=== PATIENT | female | born 1960 | race Hispanic/Latino ===

== ENCOUNTER 2018-11-25 03:45 | Inpatient (IN) | payer MEDICARE, OTHER ==
--- NOTE | 2018-11-25 04:18 | Emergency Department Report ---
ED Psych HPI - General Chief Complaint: Psych Stated Complaint: SUICIDAL IDEATIONS, OVERDOSE Time Seen by Provider: 11/25/18 04:01 Source: EMS Mode of arrival: Stretcher Limitations: No Limitations - History of Present Illness Initial Comments: 55-year-old female has history of diabetes, GERD, hypertension, and schizoaffective disorder visits to the hospital after suicide attempt. Patient states she took greater than 40 tablets of gabapentin 300 mg. She initially states that she took the medication at "3 hours ago" which would be 1 AM. She then states that she took the medication while he was still light outside. She states she is drowsy and confused. She denies any pain. History of suicide attempt in the past. Patient apparently is having auditory hallucinations. Patient is also on Topamax, Zyprexa, aspirin 81 mg. She presents with these bottles which are filled with medication and denies taking overdose of these medications. - Related Data Home Medications Medication Instructions Recorded Confirmed Last Taken Aspirin [Adult Aspirin] 81 mg PO QDAY 11/25/18 11/25/18 Unknown OLANZapine [Zyprexa Zydis] 15 mg PO QHS 11/25/18 11/25/18 Unknown Topiramate [Topamax] 25 mg PO BID 11/25/18 11/25/18 Unknown Allergies Allergy/AdvReac Type Severity Reaction Status Date / Time adhesive tape Allergy Itching Verified 11/25/18 03:54 codeine Allergy Vomiting Verified 11/25/18 03:54 latex Allergy Hives Verified 11/25/18 03:54 Opioids - Morphine Analogues Allergy Vomiting Verified 11/25/18 03:54 Sulfa (Sulfonamide Allergy Hives Verified 11/25/18 03:54 Antibiotics) ED Review of Systems ROS: Stated complaint: SUICIDAL IDEATIONS, OVERDOSE Other details as noted in HPI Comment: All other systems reviewed and negative ED Past Medical Hx - Past Medical History Previous Medical History?: Yes Hx Hypertension: Yes Hx Diabetes: Yes Hx GERD: Yes Hx Psychiatric Treatment: Yes (schizoaffective disorder) - Surgical History Past Surgical History?: Yes Hx Cholecystectomy: Yes Hx Appendectomy: Yes Additional Surgical History: uterine disection - Social History Smoking Status: Current Every Day Smoker Substance Use Type: None - Medications Home Medications: Home Medications Medication Instructions Recorded Confirmed Last Taken Type Aspirin [Adult Aspirin] 81 mg PO QDAY 11/25/18 11/25/18 Unknown History OLANZapine [Zyprexa Zydis] 15 mg PO QHS 11/25/18 11/25/18 Unknown History Topiramate [Topamax] 25 mg PO BID 11/25/18 11/25/18 Unknown History ED Physical Exam - General Limitations: No Limitations - Other Other exam information: General: Drowsy Head exam: Atraumatic, normocephalic Eyes exam: Normal appearance, pupils equal reactive to light, extraocular movements intact ENT: Moist mucous membrane, normal oropharynx Neck exam: Normal inspection, full range of motion, no meningismus nontender Respiratory exam: Clear to auscultation bilateral, no wheezes, rales, crackles Cardiovascular: Normal rate and rhythm, normal heart sounds Abdomen: Soft, nondistended, and nontender, with normal bowel sounds, no rebound, or guarding Extremity: Full range of motion normal inspection no deformity Back: Normal Inspection, full range of motion, no tenderness Neurologic: Drowsy but awake without tactile stimulation, oriented x3, cranial nerves intact, no motor or sensory deficit Psychiatric: normal affect, normal mood Skin: Warm, dry, intact ED Course Vital Signs 11/25/18 11/25/18 03:47 04:15 Temperature 97.9 F 97.9 F Pulse Rate 79 68 Respiratory 16 13 Rate Blood Pressure 143/76 Blood Pressure 143/76 [Right] O2 Sat by Pulse 99 98 Oximetry - Consultations Consultation #1: 11/25/18 04:18 Case discussed with Suzanne Segura with poison control. States that people need a large dose of gabapentin greater than 49 g to be toxic. Half-life is 5-7 hours with peak kinetics reported between 1 and 3 hours. Major side effect is over sedation and respiratory depression. She was informed of RBBB, QRS duration, and QTc on EKG and will call back regarding further recommendations 11/25/18 04:25 Callback recommended we repeat patient's EKG to ensure that that qtc/qrs are not getting worse. Prefer that intervals gets better or stay the same. Fortunately, we do not have old EKG available for comparison to determine if right bundle branch block is acute or chronic. TCA overdose may cause prolongation but pt sx not consistent with TCA overdose (that usually tachy and hyper then hypotension, then uresponsive) ED Medical Decision Making - Lab Data Result diagrams: 11/25/18 04:15 11/25/18 04:15 Lab Results 11/25/18 11/25/18 11/25/18 Range/Units 04:15 04:15 04:15 WBC (4.5-11.0) K/mm3 RBC (3.65-5.03) M/mm3 Hgb (10.1-14.3) gm/dl Hct (30.3-42.9) % MCV (79-97) fl MCH (28-32) pg MCHC (30-34) % RDW (13.2-15.2) % Plt Count (140-440) K/mm3 Lymph % (Auto) (13.4-35.0) % [place] % (Auto) (0.0-7.3) % Eos % (Auto) (0.0-4.3) % Baso % (Auto) (0.0-1.8) % Lymph # (1.2-5.4) K/mm3 [place] # (0.0-0.8) K/mm3 Eos # (0.0-0.4) K/mm3 Baso # (0.0-0.1) K/mm3 Seg Neutrophils % (40.0-70.0) % Seg Neutrophils # (1.8-7.7) K/mm3 Sodium 138 (137-145) mmol/L Potassium 3.9 (3.6-5.0) mmol/L Chloride 101.5 (98-107) mmol/L Carbon Dioxide 22 (22-30) mmol/L Anion Gap 18 mmol/L BUN 8 (7-17) mg/dL Creatinine 0.7 (0.7-1.2) mg/dL Estimated GFR > 60 ml/min BUN/Creatinine Ratio 11 % Glucose 425 H (65-100) mg/dL Calcium 9.0 (8.4-10.2) mg/dL Salicylates < 0.3 L (2.8-20.0) mg/dL Acetaminophen < 5.0 L (10.0-30.0) ug/mL Plasma/Serum Alcohol (0-0.07) % 11/25/18 11/25/18 Range/Units 04:15 04:15 WBC 10.2 (4.5-11.0) K/mm3 RBC 4.44 (3.65-5.03) M/mm3 Hgb 14.0 (10.1-14.3) gm/dl Hct 41.6 (30.3-42.9) % MCV 94 (79-97) fl MCH 32 (28-32) pg MCHC 34 (30-34) % RDW 14.3 (13.2-15.2) % Plt Count 326 (140-440) K/mm3 Lymph % (Auto) 35.0 (13.4-35.0) % [place] % (Auto) 7.2 (0.0-7.3) % Eos % (Auto) 1.3 (0.0-4.3) % Baso % (Auto) 0.8 (0.0-1.8) % Lymph # 3.6 (1.2-5.4) K/mm3 [place] # 0.7 (0.0-0.8) K/mm3 Eos # 0.1 (0.0-0.4) K/mm3 Baso # 0.1 (0.0-0.1) K/mm3 Seg Neutrophils % 55.7 (40.0-70.0) % Seg Neutrophils # 5.7 (1.8-7.7) K/mm3 Sodium (137-145) mmol/L Potassium (3.6-5.0) mmol/L Chloride (98-107) mmol/L Carbon Dioxide (22-30) mmol/L Anion Gap mmol/L BUN (7-17) mg/dL Creatinine (0.7-1.2) mg/dL Estimated GFR ml/min BUN/Creatinine Ratio % Glucose (65-100) mg/dL Calcium (8.4-10.2) mg/dL Salicylates (2.8-20.0) mg/dL Acetaminophen (10.0-30.0) ug/mL Plasma/Serum Alcohol < 0.01 (0-0.07) % - EKG Data -: EKG Interpreted by Me (RBBB) EKG shows normal: sinus rhythm, axis (qrs 83), QRS complexes (qrsd 140), ST-T waves (no stemi) Rate: normal - EKG Data When compared to previous EKG there are: previous EKG unavailable 11/25/18 05:01 repeat ekg: RBBB, qrsd 142, qtc 466 - Medical Decision Making plan to admit for obs given abnl ekg without previous for verification 2 ekgs I reviewed in ed similar without acute changes. plan to admit to hospitalist for further monitoring 1013 signed ivf and insulin for hyperglycemia due to diabetes urine collection pending at dispo - Differential Diagnosis overdose, suicidal ideation, depression, psychosis Critical Care Time: No Critical care attestation.: If time is entered above; I have spent that time in minutes in the direct care of this critically ill patient, excluding procedure time. ED Disposition Clinical Impression: Gabapentin overdose, Suicide attempt by substance overdose, RBBB, Diabetes Disposition: -09 OP ADMIT IP TO THIS HOSP Is pt being admited?: Yes Condition: Stable Instructions: Diabetes Mellitus Type 2 in Adults (ED) Time of Disposition: 05:51 (DR Machuca/hosp)
[2018-11-25 04:57] LABS: BUN/Creatinine Ratio 11; Blood Urea Nitrogen 8 mg/dL (7-17); Hemolysis Index 12
[2018-11-25 05:00] LABS: Basophils # (Auto) 0.1 K/mm3 (0.0-0.1); Basophils % (Auto) 0.8 % (0.0-1.8); Eosinophils # (Auto) 0.1 K/mm3 (0.0-0.4); Eosinophils % (Auto) 1.3 % (0.0-4.3); Hematocrit 41.6 % (30.3-42.9); Lymphocytes # (Auto) 3.6 K/mm3 (1.2-5.4); Mean Corpuscular HGB Conc 34 % (30-34); Mean Corpuscular Volume 94 fl (79-97); Monocytes # (Auto) 0.7 K/mm3 (0.0-0.8); Monocytes % (Auto) 7.2 % (0.0-7.3); Platelet Count 326 K/mm3 (140-440); Red Blood Count 4.44 M/mm3 (3.65-5.03); Red Cell Distribution Width 14.3 % (13.2-15.2)
[2018-11-25] MEDS ORDERED: HumuLIN R IV ONE (05:26)
[2018-11-25] MEDS ORDERED: NACL 0.9% 1000 ML 1,000 ML IV ONE ×2 (05:26→06:21)
[2018-11-25] MEDS ORDERED: TYLENOL PO PRN (06:17)
[2018-11-25] MEDS ORDERED: SODIUM CHLORIDE FLUSH SYRINGE 10 ML IV PRN (06:17)
[2018-11-25] MEDS ORDERED: ZOFRAN IV PRN (06:17)
[2018-11-25] MEDS ORDERED: D50W (25GM) Syringe IV PRN (06:20)
[2018-11-25] MEDS ORDERED: REGLAN IV PRN (06:23)
--- NOTE | 2018-11-25 06:28 | History and Physical Report ---
History of Present Illness Date of examination: 11/25/18 Chief complaint: Drug overdose History of present illness: Patient is a 55-year-old female with history of diabetes mellitus type 2 and schizoaffective disorder who presented to the ED on account of drug overdose with gabapentin. Patient stated that she took 40 tablets of 300 mg of gabapentin at unknown time in order to kill herself. The reason being that she didn't want to live anymore. She admitted to nausea without vomiting and dizziness. No chest pain, shortness of breath, abdominal pain, headaches, syncope or loss of consciousness. This is her fourth suicidal attempt. Per patient, she recently relocated from [place], [place] and has not seen a psychiatrist for more than a year. Past History Past Medical History: diabetes, GERD, hypertension, other (schizoaffective disorder) Past Surgical History: cholecystectomy, tonsillectomy, Other (uterine resection, laser surgery) Social history: smoking (patient has more than 40 years history of cigarette smoking. She currently smokes 1 pack per day. She admits to marijuana use but denies alcohol or other illicit drug use) Family history: other (significant for psychiatric disorder in multiple family members but no known family history of suicidal attempts) Medications and Allergies Allergies Allergy/AdvReac Type Severity Reaction Status Date / Time adhesive tape Allergy Itching Verified 11/25/18 03:54 codeine Allergy Vomiting Verified 11/25/18 03:54 latex Allergy Hives Verified 11/25/18 03:54 Opioids - Morphine Analogues Allergy Vomiting Verified 11/25/18 03:54 Sulfa (Sulfonamide Allergy Hives Verified 11/25/18 03:54 Antibiotics) Home Medications Medication Instructions Recorded Confirmed Last Taken Type Aspirin [Adult Aspirin] 81 mg PO QDAY 11/25/18 11/25/18 Unknown History OLANZapine [Zyprexa Zydis] 15 mg PO QHS 11/25/18 11/25/18 Unknown History Topiramate [Topamax] 25 mg PO BID 11/25/18 11/25/18 Unknown History Active Meds: Active Medications Acetaminophen (Tylenol) 650 mg PO Q4H PRN PRN Reason: Pain MILD(1-3)/Fever >100.5/LLOYD Dextrose (D50w (25gm) Syringe) 50 ml IV PRN PRN PRN Reason: Hypoglycemia Enoxaparin Sodium (Lovenox) 40 mg SUB-Q QDAY LIAT Sodium Chloride (Nacl 0.9% 1000 Ml) 1,000 mls @ 999 mls/hr IV BOLUS ONE Stop: 11/25/18 06:26 Sodium Chloride (Nacl 0.9% 1000 Ml) 1,000 mls @ 999 mls/hr IV BOLUS ONE Stop: 11/25/18 07:21 Sodium Chloride (Nacl 0.9% 1000 Ml) 1,000 mls @ 125 mls/hr IV DIRECT LIAT Insulin Glargine (Lantus) 25 units SUB-Q BID LIAT Metoclopramide HCl (Reglan) 10 mg IV Q6H PRN PRN Reason: Nausea And Vomiting Sodium Chloride (Sodium Chloride Flush Syringe 10 Ml) 10 ml IV BID LIAT Sodium Chloride (Sodium Chloride Flush Syringe 10 Ml) 10 ml IV PRN PRN PRN Reason: LINE FLUSH Review of Systems All systems: negative (except as documented in the HPI, 14 point system reviewed were negative) Exam - Constitutional Vitals: Temp Pulse Resp BP Pulse Ox 97.9 F 65 16 116/64 97 11/25/18 04:15 11/25/18 05:45 11/25/18 05:45 11/25/18 05:45 11/25/18 05:45 General appearance: Present: no acute distress - EENT Eyes: Present: PERRL, EOM intact ENT: hearing intact, clear oral mucosa - Neck Neck: Present: supple, normal ROM - Respiratory Respiratory effort: normal Respiratory: bilateral: CTA - Cardiovascular Rhythm: regular Heart Sounds: Present: S1 & S2 - Extremities Extremities: pulses symmetrical, No edema - Abdominal General gastrointestinal: Present: soft, non-tender, normal bowel sounds Female genitourinary: Present: deferred - Integumentary Integumentary: Present: clear, warm, dry - Musculoskeletal Musculoskeletal: strength equal bilaterally - Psychiatric Psychiatric: other (suicidal ideation) - Neurologic Neurologic: CNII-XII intact Results - Labs CBC & Chem 7: 11/25/18 04:15 11/25/18 04:15 Labs: Laboratory Last Values WBC 10.2 K/mm3 (4.5-11.0) 11/25/18 04:15 RBC 4.44 M/mm3 (3.65-5.03) 11/25/18 04:15 Hgb 14.0 gm/dl (10.1-14.3) 11/25/18 04:15 Hct 41.6 % (30.3-42.9) 11/25/18 04:15 MCV 94 fl (79-97) 11/25/18 04:15 MCH 32 pg (28-32) 11/25/18 04:15 MCHC 34 % (30-34) 11/25/18 04:15 RDW 14.3 % (13.2-15.2) 11/25/18 04:15 Plt Count 326 K/mm3 (140-440) 11/25/18 04:15 Lymph % (Auto) 35.0 % (13.4-35.0) 11/25/18 04:15 [place] % (Auto) 7.2 % (0.0-7.3) 11/25/18 04:15 Eos % (Auto) 1.3 % (0.0-4.3) 11/25/18 04:15 Baso % (Auto) 0.8 % (0.0-1.8) 11/25/18 04:15 Lymph # 3.6 K/mm3 (1.2-5.4) 11/25/18 04:15 [place] # 0.7 K/mm3 (0.0-0.8) 11/25/18 04:15 Eos # 0.1 K/mm3 (0.0-0.4) 11/25/18 04:15 Baso # 0.1 K/mm3 (0.0-0.1) 11/25/18 04:15 Seg Neutrophils % 55.7 % (40.0-70.0) 11/25/18 04:15 Seg Neutrophils # 5.7 K/mm3 (1.8-7.7) 11/25/18 04:15 Sodium 138 mmol/L (137-145) 11/25/18 04:15 Potassium 3.9 mmol/L (3.6-5.0) 11/25/18 04:15 Chloride 101.5 mmol/L (98-107) 11/25/18 04:15 Carbon Dioxide 22 mmol/L (22-30) 11/25/18 04:15 18 mmol/L 11/25/18 04:15 BUN 8 mg/dL (7-17) 11/25/18 04:15 0.7 mg/dL (0.7-1.2) 11/25/18 04:15 Estimated GFR > 60 ml/min 11/25/18 04:15 11 % 11/25/18 04:15 Glucose 425 mg/dL (65-100) H 11/25/18 04:15 Calcium 9.0 mg/dL (8.4-10.2) 11/25/18 04:15 Salicylates < 0.3 mg/dL (2.8-20.0) L 11/25/18 04:15 Acetaminophen < 5.0 ug/mL (10.0-30.0) L 11/25/18 04:15 Plasma/Serum Alcohol < 0.01 % (0-0.07) 11/25/18 04:15 Assessment and Plan Assessment and plan: Drug over dose with gabapentin -Per ER doc, case discussed with Suzanne Segura with poison control. States that people need a large dose of gabapentin greater than 49 g to be toxic. Half-life is 5-7 hours with peak kinetics reported between 1 and 3 hours. Major side effect is over sedation and respiratory depression. -Avoid sedative agents -Monitor mental and respiratory status Schizoaffective disorder with suicidal attempt -On 1013 -Mental health team consulted. Abnormal EKG (RBBB and prolonged QT) -Unlikely due to the gabapentin overdose -Telemetry monitoring -Avoid QT prolonging agents -Follow up repeat EKG per poison control recommendation DM2 with hyperglycemia -On IV fluid, SSI and Lantus Hypertension -BP stable GERD -On Protonix DVT prophylaxis with Lovenox Disposition: Discharge planning per psych when medically cleared Time spent: 38 minutes
[2018-11-25 07:50] LABS: Bilirubin,Urine NEG (Negative); Blood,Urine NEG (Negative); Color,Urine Yellow (Yellow); Mucus,Urine FEW /HPF; Protein,Urine <15 mg/dL mg/dL (Negative); Urobilinogen,Urine < 2.0 mg/dL (<2.0)
[2018-11-25 07:52] LABS: Amphetamine Screen,Urine PRESUMPTIVE NEGATIVE; Benzodiazepines Screen,Urine PRESUMPTIVE NEGATIVE; Cannabinoid Screen,Urine PRESUMPTIVE NEGATIVE; Cocaine Screen,Urine PRESUMPTIVE NEGATIVE; Methadone Screen,Urine PRESUMPTIVE NEGATIVE; Opiate Screen,Urine PRESUMPTIVE NEGATIVE
[2018-11-25] MEDS: LANTUS SUB-Q SCH ×2 (08:26→18:21)
[2018-11-25] MEDS ORDERED: NACL 0.9% 1000 ML 1,000 ML ONE (08:36)
--- NOTE | 2018-11-25 09:18 | Progress Note ---
Assessment and Plan Assessment and plan: Drug over dose with gabapentin -Per ER doc, case discussed with Suzanne Segura with poison control. States that people need a large dose of gabapentin greater than 49 g to be toxic. Half-life is 5-7 hours with peak kinetics reported between 1 and 3 hours. Major side effect is over sedation and respiratory depression. -Avoid sedative agents -Monitor mental and respiratory status Schizoaffective disorder with suicidal attempt -On 1013 -Mental health team consulted. Abnormal EKG (RBBB and prolonged QT) -Unlikely due to the gabapentin overdose -Telemetry monitoring -Avoid QT prolonging agents -Follow up repeat EKG per poison control recommendation DM2 with hyperglycemia -On IV fluid, SSI and Lantus -Accu-Cheks and ADA diet Hypertension -BP stable GERD -On Protonix DVT prophylaxis with Lovenox Disposition: Discharge planning per psych when medically cleared History Interval history: Patient is a 55-year-old female with history of diabetes mellitus type 2 and schizoaffective disorder who presented to the ED on account of drug overd ose with gabapentin. Patient stated that she took 40 tablets of 300 mg of gabapentin at unknown time in order to kill herself. The reason being that she didn't want to live anymore. Hospitalist Physical - Constitutional Vitals: Temp Pulse Resp BP Pulse Ox 97.9 F 65 16 116/64 97 11/25/18 04:15 11/25/18 05:45 11/25/18 05:45 11/25/18 05:45 11/25/18 05:45 General appearance: Present: no acute distress - EENT Eyes: Present: PERRL, EOM intact ENT: hearing intact, clear oral mucosa, dentition normal - Neck Neck: Present: supple, normal ROM - Respiratory Respiratory effort: normal Respiratory: bilateral: CTA - Cardiovascular Rhythm: regular Heart Sounds: Present: S1 & S2. Absent: gallop, rub - Extremities Extremities: no ischemia, No edema, Full ROM - Abdominal General gastrointestinal: soft, non-tender, non-distended, normal bowel sounds - Integumentary Integumentary: Present: clear, warm, dry - Neurologic Neurologic: CNII-XII intact, moves all extremities Results - Labs CBC & Chem 7: 11/25/18 04:15 11/25/18 04:15 Labs: Laboratory Last Values WBC 10.2 K/mm3 (4.5-11.0) 11/25/18 04:15 RBC 4.44 M/mm3 (3.65-5.03) 11/25/18 04:15 Hgb 14.0 gm/dl (10.1-14.3) 11/25/18 04:15 Hct 41.6 % (30.3-42.9) 11/25/18 04:15 MCV 94 fl (79-97) 11/25/18 04:15 MCH 32 pg (28-32) 11/25/18 04:15 MCHC 34 % (30-34) 11/25/18 04:15 RDW 14.3 % (13.2-15.2) 11/25/18 04:15 Plt Count 326 K/mm3 (140-440) 11/25/18 04:15 Lymph % (Auto) 35.0 % (13.4-35.0) 11/25/18 04:15 [place] % (Auto) 7.2 % (0.0-7.3) 11/25/18 04:15 Eos % (Auto) 1.3 % (0.0-4.3) 11/25/18 04:15 Baso % (Auto) 0.8 % (0.0-1.8) 11/25/18 04:15 Lymph # 3.6 K/mm3 (1.2-5.4) 11/25/18 04:15 [place] # 0.7 K/mm3 (0.0-0.8) 11/25/18 04:15 Eos # 0.1 K/mm3 (0.0-0.4) 11/25/18 04:15 Baso # 0.1 K/mm3 (0.0-0.1) 11/25/18 04:15 Seg Neutrophils % 55.7 % (40.0-70.0) 11/25/18 04:15 Seg Neutrophils # 5.7 K/mm3 (1.8-7.7) 11/25/18 04:15 Sodium 138 mmol/L (137-145) 11/25/18 04:15 Potassium 3.9 mmol/L (3.6-5.0) 11/25/18 04:15 Chloride 101.5 mmol/L (98-107) 11/25/18 04:15 Carbon Dioxide 22 mmol/L (22-30) 11/25/18 04:15 18 mmol/L 11/25/18 04:15 BUN 8 mg/dL (7-17) 11/25/18 04:15 0.7 mg/dL (0.7-1.2) 11/25/18 04:15 Estimated GFR > 60 ml/min 11/25/18 04:15 11 % 11/25/18 04:15 Glucose 425 mg/dL (65-100) H 11/25/18 04:15 POC Glucose 173 (70-105) H 11/25/18 08:02 Calcium 9.0 mg/dL (8.4-10.2) 11/25/18 04:15 Yellow (Yellow) 11/25/18 07:30 Slightly-cloudy (Clear) 11/25/18 07:30 6.0 (5.0-7.0) 11/25/18 07:30 Ur Specific [place] 1.030 (1.003-1.030) 11/25/18 07:30 <15 mg/dl mg/dL (Negative) 11/25/18 07:30 >=500 mg/dL (Negative) 11/25/18 07:30 Neg mg/dL (Negative) 11/25/18 07:30 Neg (Negative) 11/25/18 07:30 Neg (Negative) 11/25/18 07:30 Neg (Negative) 11/25/18 07:30 < 2.0 mg/dL (<2.0) 11/25/18 07:30 Ur Leukocyte Esterase Neg (Negative) 11/25/18 07:30 1.0 /HPF (0.0-6.0) 11/25/18 07:30 1.0 /HPF (0.0-6.0) 11/25/18 07:30 U Epithel Cells (Auto) 6.0 /HPF (0-13.0) 11/25/18 07:30 Few /HPF 11/25/18 07:30 Salicylates < 0.3 mg/dL (2.8-20.0) L 11/25/18 04:15 Presumptive negative 11/25/18 07:30 Presumptive negative 11/25/18 07:30 Acetaminophen < 5.0 ug/mL (10.0-30.0) L 11/25/18 04:15 Ur Barbiturates Screen Presumptive negative 11/25/18 07:30 Ur Phencyclidine Scrn Presumptive negative 11/25/18 07:30 Ur Amphetamines Screen Presumptive negative 11/25/18 07:30 U Benzodiazepines Scrn Presumptive negative 11/25/18 07:30 Presumptive negative 11/25/18 07:30 U Marijuana (THC) Screen Presumptive negative 11/25/18 07:30 Disclamer 11/25/18 07:30 Plasma/Serum Alcohol < 0.01 % (0-0.07) 11/25/18 04:15 Active Medications - Current Medications Current Medications: Generic Name Dose Route Start Last Admin Trade Name Freq PRN Reason Stop Dose Admin Acetaminophen 650 mg 11/25/18 06:17 Tylenol PO Q4H PRN Pain MILD(1-3)/Fever >100.5/LLOYD Dextrose 50 ml 11/25/18 06:20 D50w (25gm) Syringe IV PRN PRN Hypoglycemia Enoxaparin Sodium 40 mg 11/25/18 10:00 Lovenox SUB-Q QDAY LIAT Sodium Chloride 1,000 mls @ 125 mls/hr 11/25/18 07:00 Nacl 0.9% 1000 Ml IV DIRECT LIAT Insulin Glargine 25 units 11/25/18 08:00 11/25/18 08:26 Lantus SUB-Q 25 units BIDDIAB LIAT Administration Metoclopramide HCl 10 mg 11/25/18 06:23 Reglan IV Q6H PRN Nausea And Vomiting Pantoprazole Sodium 40 mg 11/25/18 10:00 Protonix PO QDAY LIAT Sodium Chloride 10 ml 11/25/18 10:00 Sodium Chloride Flush Syringe 10 Ml IV BID LIAT Sodium Chloride 10 ml 11/25/18 06:17 Sodium Chloride Flush Syringe 10 Ml IV PRN PRN LINE FLUSH
--- NOTE | 2018-11-25 10:32 | Consultation ---
History of Present Illness - Reason for Consult Consult date: 11/25/18 Reason for consult: Mental Health EValuation Requesting physician: JAYDEN EISENBERG - Chief Complaint Chief complaint: "I have a lot going on" - History of Present Psychiatric Illness 55 y.o. white female who presented to the ER for a suicide attempt. Today the patient was calm, but paranoid during the assessment. She stated that the voices told her to take several Gabapentin pills (40) to kill herself yesterday. She stated that she was overwhelmed, so she listened to the voices. She was asked about her family, she stated that she do not communicate with them. She sated that her " 's" former coworkers are following her reference an "investment." She rambles about several things that wasn't relevant to the conversation. She was asked about her mental health, she stated "I have not seen a psychiatrist in a year." She stated that she take Zyprexa. She would not confirm or deny having SI's. She denies HI's and VH's. She stated that the voices are "real." She denies recreational drug use and alcohol consumption (etoh). Medications and Allergies Allergies Allergy/AdvReac Type Severity Reaction Status Date / Time adhesive tape Allergy Itching Verified 11/25/18 03:54 codeine Allergy Vomiting Verified 11/25/18 03:54 latex Allergy Hives Verified 11/25/18 03:54 Opioids - Morphine Analogues Allergy Vomiting Verified 11/25/18 03:54 Sulfa (Sulfonamide Allergy Hives Verified 11/25/18 03:54 Antibiotics) Home Medications Medication Instructions Recorded Confirmed Last Taken Type Aspirin [Adult Aspirin] 81 mg PO QDAY 11/25/18 11/25/18 Unknown History OLANZapine [Zyprexa Zydis] 15 mg PO QHS 11/25/18 11/25/18 Unknown History Topiramate [Topamax] 25 mg PO BID 11/25/18 11/25/18 Unknown History Active Meds: Active Medications Acetaminophen (Tylenol) 650 mg PO Q4H PRN PRN Reason: Pain MILD(1-3)/Fever >100.5/LLOYD Dextrose (D50w (25gm) Syringe) 50 ml IV PRN PRN PRN Reason: Hypoglycemia Enoxaparin Sodium (Lovenox) 40 mg SUB-Q QDAY LIAT Sodium Chloride (Nacl 0.9% 1000 Ml) 1,000 mls @ 125 mls/hr IV DIRECT [facility] Insulin Glargine (Lantus) 25 units SUB-Q BIDDIAB [facility] Last Admin: 11/25/18 08:26 Dose: 25 units Documented by: Metoclopramide HCl (Reglan) 10 mg IV Q6H PRN PRN Reason: Nausea And Vomiting Pantoprazole Sodium (Protonix) 40 mg PO QDAY [facility] Sodium Chloride (Sodium Chloride Flush Syringe 10 Ml) 10 ml IV BID LIAT Sodium Chloride (Sodium Chloride Flush Syringe 10 Ml) 10 ml IV PRN PRN PRN Reason: LINE FLUSH Past psychiatric history - Past Medical History Past Medical History: diabetes, GERD, hypertension Past Surgical History: appendectomy, cholecystectomy - past Psychiatric treatment and history psychiatric treatment history: The patient would not confirm or deny previous inpatient psy settings. Denies a fam psy h x. - Social History Social history: Lives alone Mental Status Exam - Vital signs Last Vital Signs Temp 97.9 F 11/25/18 04:15 Pulse 68 11/25/18 07:15 Resp 12 11/25/18 07:15 BP 120/75 11/25/18 07:15 Pulse Ox 98 11/25/18 07:15 - Exam Narrative exam: MSE: Appearance: calm, cooperative Behavior: regular eye contact Speech: regular rate with loud tone Mood:: "okay" Affect: flat Thought Process: loose associations Thought Content: denies HI's and VH's, paranoia, delusional Motor Activity: ambulatory Cognition: A/O x3 Insight: poor Judgment: poor Results Result Diagrams: 11/25/18 04:15 11/26/18 05:45 Abnormal lab results 11/25/18 11/25/18 11/25/18 Range/Units 04:15 04:15 04:15 Glucose 425 H (65-100) mg/dL POC Glucose (70-105) Salicylates < 0.3 L (2.8-20.0) mg/dL Acetaminophen < 5.0 L (10.0-30.0) ug/mL 11/25/18 11/25/18 Range/Units 06:06 08:02 Glucose (65-100) mg/dL POC Glucose 318 H 173 H (70-105) Salicylates (2.8-20.0) mg/dL Acetaminophen (10.0-30.0) ug/mL All other labs normal. Assessment and Plan Assessment and plan: Impression: Unspecified Psychosis. Today the patient was calm, but paranoid during the assessment. UDS is negative. QTc 466. DDx: Bipolar DO with psychosis, Schizoaffective DO, Schizophrenia Recommendation/Plan: Continue 1013 and start Zyprexa 5 mg PO HS for psychosis/mood. Attempted to discuss possible metabolic side effects of Zyprexa with the patient. Disp: Once medically clear, proper dispo will be determined. Staffed with Dr. Julian Corona.
[2018-11-25] MEDS: PROTONIX PO SCH (13:45)
[2018-11-25] MEDS: NACL 0.9% 1000 ML 1,000 ML IV SCH ×2 (13:45→23:15)
[2018-11-25] MEDS: SODIUM CHLORIDE FLUSH SYRINGE 10 ML IV SCH ×2 (13:46→23:11)
[2018-11-25] MEDS: LOVENOX SUB-Q SCH (13:46)
[2018-11-26 07:21] LABS: Alanine Aminotransferase 14 units/L (7-56); Albumin 2.8 g/dL (3.9-5); BUN/Creatinine Ratio 15; Blood Urea Nitrogen 9 mg/dL (7-17); Hemolysis Index 5
[2018-11-26] MEDS: NACL 0.9% 1000 ML 1,000 ML IV SCH ×2 (08:40→17:48)
[2018-11-26] MEDS: LOVENOX SUB-Q SCH (09:43)
[2018-11-26] MEDS: PROTONIX PO SCH (09:43)
[2018-11-26] MEDS: SODIUM CHLORIDE FLUSH SYRINGE 10 ML IV SCH ×2 (09:44→21:46)
--- NOTE | 2018-11-26 10:18 | Progress Note ---
Assessment and Plan Assessment and plan: Drug overdose with gabapentin Schizoaffective disorder with suicidal attempt -On 1013 -Mental health team following. -Zyprexa 5 mg PO HS for psychosis/mood. Abnormal EKG (RBBB and prolonged QT) -Unlikely due to the gabapentin overdose -Telemetry monitoring -Avoid QT prolonging agents -Follow up repeat EKG per poison control recommendation DM2 with hyperglycemia -On IV fluid, SSI and Lantus -Accu-Cheks and ADA diet Hypertension -BP stable GERD -On Protonix DVT prophylaxis with Lovenox Disposition: Discharge planning per psych when medically cleared History Interval history: Patient is a 55-year-old female with history of diabetes mellitus type 2 and schizoaffective disorder who presented to the ED on account of drug overdose with gabapentin. Patient stated that she took 40 tablets of 300 mg of gabapentin at unknown time in order to kill herself. The reason being that she didn't want to live anymore. Patient was evaluated by psychiatry. No new issues overnight. Hospitalist Physical - Constitutional Vitals: Temp Pulse Resp BP Pulse Ox 98.3 F 60 16 127/65 96 11/26/18 05:35 11/26/18 05:35 11/26/18 05:35 11/26/18 05:35 11/26/18 05:35 General appearance: Present: no acute distress - EENT Eyes: Present: PERRL, EOM intact ENT: hearing intact, clear oral mucosa, dentition normal - Neck Neck: Present: supple, normal ROM - Respiratory Respiratory effort: normal Respiratory: bilateral: CTA - Cardiovascular Rhythm: regular Heart Sounds: Present: S1 & S2. Absent: gallop, rub - Extremities Extremities: no ischemia, No edema, Full ROM - Abdominal General gastrointestinal: soft, non-tender, non-distended, normal bowel sounds - Integumentary Integumentary: Present: clear, warm, dry - Neurologic Neurologic: CNII-XII intact, moves all extremities Results - Labs CBC & Chem 7: 11/25/18 04:15 11/26/18 05:45 Labs: Laboratory Last Values WBC 10.2 K/mm3 (4.5-11.0) 11/25/18 04:15 RBC 4.44 M/mm3 (3.65-5.03) 11/25/18 04:15 Hgb 14.0 gm/dl (10.1-14.3) 11/25/18 04:15 Hct 41.6 % (30.3-42.9) 11/25/18 04:15 MCV 94 fl (79-97) 11/25/18 04:15 MCH 32 pg (28-32) 11/25/18 04:15 MCHC 34 % (30-34) 11/25/18 04:15 RDW 14.3 % (13.2-15.2) 11/25/18 04:15 Plt Count 326 K/mm3 (140-440) 11/25/18 04:15 Lymph % (Auto) 35.0 % (13.4-35.0) 11/25/18 04:15 [place] % (Auto) 7.2 % (0.0-7.3) 11/25/18 04:15 Eos % (Auto) 1.3 % (0.0-4.3) 11/25/18 04:15 Baso % (Auto) 0.8 % (0.0-1.8) 11/25/18 04:15 Lymph # 3.6 K/mm3 (1.2-5.4) 11/25/18 04:15 [place] # 0.7 K/mm3 (0.0-0.8) 11/25/18 04:15 Eos # 0.1 K/mm3 (0.0-0.4) 11/25/18 04:15 Baso # 0.1 K/mm3 (0.0-0.1) 11/25/18 04:15 Seg Neutrophils % 55.7 % (40.0-70.0) 11/25/18 04:15 Seg Neutrophils # 5.7 K/mm3 (1.8-7.7) 11/25/18 04:15 Sodium 144 mmol/L (137-145) 11/26/18 05:45 Potassium 3.6 mmol/L (3.6-5.0) 11/26/18 05:45 Chloride 110.5 mmol/L (98-107) H 11/26/18 05:45 Carbon Dioxide 23 mmol/L (22-30) 11/26/18 05:45 14 mmol/L 11/26/18 05:45 BUN 9 mg/dL (7-17) 11/26/18 05:45 0.6 mg/dL (0.7-1.2) L 11/26/18 05:45 Estimated GFR > 60 ml/min 11/26/18 05:45 15 % 11/26/18 05:45 Glucose 197 mg/dL (65-100) H 11/26/18 05:45 POC Glucose 141 (70-105) H 11/26/18 07:59 10.1 % (4-6) H 11/26/18 05:45 Calcium 8.0 mg/dL (8.4-10.2) L 11/26/18 05:45 Magnesium 1.60 mg/dL (1.7-2.3) L 11/26/18 05:45 0.30 mg/dL (0.1-1.2) 11/26/18 05:45 AST 11 units/L (5-40) 11/26/18 05:45 ALT 14 units/L (7-56) 11/26/18 05:45 121 units/L (35-129) 11/26/18 05:45 5.6 g/dL (6.3-8.2) L 11/26/18 05:45 2.8 g/dL (3.9-5) L 11/26/18 05:45 1.0 % 11/26/18 05:45 Yellow (Yellow) 11/25/18 07:30 Slightly-cloudy (Clear) 11/25/18 07:30 6.0 (5.0-7.0) 11/25/18 07:30 Ur Specific [place] 1.030 (1.003-1.030) 11/25/18 07:30 <15 mg/dl mg/dL (Negative) 11/25/18 07:30 >=500 mg/dL (Negative) 11/25/18 07:30 Neg mg/dL (Negative) 11/25/18 07:30 Neg (Negative) 11/25/18 07:30 Neg (Negative) 11/25/18 07:30 Neg (Negative) 11/25/18 07:30 < 2.0 mg/dL (<2.0) 11/25/18 07:30 Ur Leukocyte Esterase Neg (Negative) 11/25/18 07:30 1.0 /HPF (0.0-6.0) 11/25/18 07:30 1.0 /HPF (0.0-6.0) 11/25/18 07:30 U Epithel Cells (Auto) 6.0 /HPF (0-13.0) 11/25/18 07:30 Few /HPF 11/25/18 07:30 Salicylates < 0.3 mg/dL (2.8-20.0) L 11/25/18 04:15 Presumptive negative 11/25/18 07:30 Presumptive negative 11/25/18 07:30 Acetaminophen < 5.0 ug/mL (10.0-30.0) L 11/25/18 04:15 Ur Barbiturates Screen Presumptive negative 11/25/18 07:30 Ur Phencyclidine Scrn Presumptive negative 11/25/18 07:30 Ur Amphetamines Screen Presumptive negative 11/25/18 07:30 U Benzodiazepines Scrn Presumptive negative 11/25/18 07:30 Presumptive negative 11/25/18 07:30 U Marijuana (THC) Screen Presumptive negative 11/25/18 07:30 Disclamer 11/25/18 07:30 Plasma/Serum Alcohol < 0.01 % (0-0.07) 11/25/18 04:15 Active Medications - Current Medications Current Medications: Generic Name Dose Route Start Last Admin Trade Name Freq PRN Reason Stop Dose Admin Acetaminophen 650 mg 11/25/18 06:17 Tylenol PO Q4H PRN Pain MILD(1-3)/Fever >100.5/LLOYD Dextrose 50 ml 11/25/18 06:20 D50w (25gm) Syringe IV PRN PRN Hypoglycemia Enoxaparin Sodium 40 mg 11/25/18 10:00 11/26/18 09:43 Lovenox SUB-Q 40 mg QDAY LIAT Administration Sodium Chloride 1,000 mls @ 125 mls/hr 11/25/18 07:00 11/26/18 08:40 Nacl 0.9% 1000 Ml IV 125 mls/hr DIRECT LIAT Administration Insulin Glargine 25 units 11/25/18 08:00 11/25/18 18:21 Lantus SUB-Q 25 units BIDDIAB LIAT Administration Metoclopramide HCl 10 mg 11/25/18 06:23 Reglan IV Q6H PRN Nausea And Vomiting Olanzapine 5 mg 11/25/18 22:00 11/25/18 23:11 Zyprexa PO 5 mg HS LIAT Administration Pantoprazole Sodium 40 mg 11/25/18 10:00 11/26/18 09:43 Protonix PO 40 mg QDAY LIAT Administration Sodium Chloride 10 ml 11/25/18 10:00 11/26/18 09:44 Sodium Chloride Flush Syringe 10 Ml IV 10 ml BID LIAT Administration Sodium Chloride 10 ml 11/25/18 06:17 Sodium Chloride Flush Syringe 10 Ml IV PRN PRN LINE FLUSH
[2018-11-26] MEDS: LANTUS SUB-Q SCH ×2 (10:31→17:42)
--- NOTE | 2018-11-26 14:39 | Progress Note ---
Subjective - Reason for Consult Consult date: 11/26/18 Reason for consult: Psychiatric Follow-up Evaluation - Chief Complaint Chief complaint: "a little anxious" Patient is a 55 y.o. white female who presented to the ER for a suicide attempt. Today the patient is cooperative but anxious during the assessment. She continues to endorses paranoid delusions toward family. She states " my 4 years ago and I'm the heir to his inheritance." Also, she endorses intermittent auditory hallucinations. Per patient the voices laugh at her, make fun of her, and bully her. Reports appropriate sleep and appetite. She denies SI/HI's. Mental Status Exam - Vital signs Last Vital Signs Temp 98.3 F 11/26/18 11:50 Pulse 67 11/26/18 11:50 Resp 18 11/26/18 11:50 BP 152/84 11/26/18 11:50 Pulse Ox 98 11/26/18 11:50 - Exam Narrative exam: Mental Status Exam Appearance: calm, cooperative Behavior: regular eye contact Speech: regular rate with loud tone Mood:: "a little anxious" Affect: flat Thought Process: loose associations Thought Content: denies SI/HI's and VH's; + auditory hallucinations and paranoid/grandiose delusions. Motor Activity: ambulatory Cognition: A/O x 3 Insight: poor Judgment: poor Assessment and Plan Impression: Unspecified Psychosis. Today the patient is cooperative but anxious during the assessment. Psychosis is evident. UDS is negative. QTc 466. DDx: Bipolar DO with psychosis, Schizoaffective DO, Schizophrenia Recommendation/Plan: 1. Continue 1013. 2. Continue Zyprexa 5 mg PO HS for psychosis/mood. Attempted to discuss possible metabolic side effects of Zyprexa with the patient. Disposition: Once medically clear, proper disposition will be determined. Will staff with Dr. Julian Corona.
[2018-11-27] MEDS: NACL 0.9% 1000 ML 1,000 ML IV SCH ×2 (02:29→14:11)
[2018-11-27] MEDS: PROTONIX PO SCH (09:46)
[2018-11-27] MEDS: SODIUM CHLORIDE FLUSH SYRINGE 10 ML IV SCH ×2 (09:47→21:31)
[2018-11-27] MEDS: LOVENOX SUB-Q SCH (09:47)
[2018-11-27] MEDS: LANTUS SUB-Q SCH ×2 (09:47→18:05)
--- NOTE | 2018-11-27 10:11 | Progress Note ---
Assessment and Plan Assessment and plan: Drug overdose with gabapentin Schizoaffective disorder with suicidal attempt -On 1013 -Mental health team following. -Zyprexa 5 mg PO HS for psychosis/mood. Abnormal EKG (RBBB and prolonged QT) -Unlikely due to the gabapentin overdose -Telemetry monitoring -Avoid QT prolonging agents -Follow up repeat EKG per poison control recommendation DM2 with hyperglycemia -On IV fluid, SSI and Lantus -Accu-Cheks and ADA diet Hypertension -BP stable GERD -On Protonix DVT prophylaxis with Lovenox Disposition: Discharge planning per psych when medically cleared History Interval history: Patient is a 55-year-old female with history of diabetes mellitus type 2 and schizoaffective disorder who presented to the ED on account of drug overdose with gabapentin. Patient stated that she took 40 tablets of 300 mg of gabapentin at unknown time in order to kill herself. The reason being that she didn't want to live anymore. Patient was evaluated by psychiatry. No new issues overnight. Hospitalist Physical - Constitutional Vitals: Temp Pulse Resp BP Pulse Ox 98.5 F 64 16 148/75 98 11/27/18 10:06 11/27/18 10:06 11/27/18 10:06 11/27/18 10:11/27/18 10:06 General appearance: Present: no acute distress - EENT Eyes: Present: PERRL, EOM intact ENT: hearing intact, clear oral mucosa, dentition normal - Neck Neck: Present: supple, normal ROM - Respiratory Respiratory effort: normal Respiratory: bilateral: CTA - Cardiovascular Rhythm: regular Heart Sounds: Present: S1 & S2. Absent: gallop, rub - Extremities Extremities: no ischemia, No edema, Full ROM - Abdominal General gastrointestinal: soft, non-tender, non-distended, normal bowel sounds - Integumentary Integumentary: Present: clear, warm, dry - Neurologic Neurologic: CNII-XII intact, moves all extremities Results - Labs CBC & Chem 7: 11/25/18 04:15 11/26/18 05:45 Labs: Laboratory Last Values WBC 10.2 K/mm3 (4.5-11.0) 11/25/18 04:15 RBC 4.44 M/mm3 (3.65-5.03) 11/25/18 04:15 Hgb 14.0 gm/dl (10.1-14.3) 11/25/18 04:15 Hct 41.6 % (30.3-42.9) 11/25/18 04:15 MCV 94 fl (79-97) 11/25/18 04:15 MCH 32 pg (28-32) 11/25/18 04:15 MCHC 34 % (30-34) 11/25/18 04:15 RDW 14.3 % (13.2-15.2) 11/25/18 04:15 Plt Count 326 K/mm3 (140-440) 11/25/18 04:15 Lymph % (Auto) 35.0 % (13.4-35.0) 11/25/18 04:15 [place] % (Auto) 7.2 % (0.0-7.3) 11/25/18 04:15 Eos % (Auto) 1.3 % (0.0-4.3) 11/25/18 04:15 Baso % (Auto) 0.8 % (0.0-1.8) 11/25/18 04:15 Lymph # 3.6 K/mm3 (1.2-5.4) 11/25/18 04:15 [place] # 0.7 K/mm3 (0.0-0.8) 11/25/18 04:15 Eos # 0.1 K/mm3 (0.0-0.4) 11/25/18 04:15 Baso # 0.1 K/mm3 (0.0-0.1) 11/25/18 04:15 Seg Neutrophils % 55.7 % (40.0-70.0) 11/25/18 04:15 Seg Neutrophils # 5.7 K/mm3 (1.8-7.7) 11/25/18 04:15 Sodium 144 mmol/L (137-145) 11/26/18 05:45 Potassium 3.6 mmol/L (3.6-5.0) 11/26/18 05:45 Chloride 110.5 mmol/L (98-107) H 11/26/18 05:45 Carbon Dioxide 23 mmol/L (22-30) 11/26/18 05:45 14 mmol/L 11/26/18 05:45 BUN 9 mg/dL (7-17) 11/26/18 05:45 0.6 mg/dL (0.7-1.2) L 11/26/18 05:45 Estimated GFR > 60 ml/min 11/26/18 05:45 15 % 11/26/18 05:45 Glucose 197 mg/dL (65-100) H 11/26/18 05:45 POC Glucose 95 (70-105) 11/27/18 07:39 10.1 % (4-6) H 11/26/18 05:45 Calcium 8.0 mg/dL (8.4-10.2) L 11/26/18 05:45 Magnesium 1.60 mg/dL (1.7-2.3) L 11/26/18 05:45 0.30 mg/dL (0.1-1.2) 11/26/18 05:45 AST 11 units/L (5-40) 11/26/18 05:45 ALT 14 units/L (7-56) 11/26/18 05:45 121 units/L (35-129) 11/26/18 05:45 5.6 g/dL (6.3-8.2) L 11/26/18 05:45 2.8 g/dL (3.9-5) L 11/26/18 05:45 1.0 % 11/26/18 05:45 Yellow (Yellow) 11/25/18 07:30 Slightly-cloudy (Clear) 11/25/18 07:30 6.0 (5.0-7.0) 11/25/18 07:[address] [place] 1.030 (1.003-1.030) 11/25/18 07:30 <15 mg/dl mg/dL (Negative) 11/25/18 07:30 >=500 mg/dL (Negative) 11/25/18 07:30 Neg mg/dL (Negative) 11/25/18 07:30 Neg (Negative) 11/25/18 07:30 Neg (Negative) 11/25/18 07:30 Neg (Negative) 11/25/18 07:30 < 2.0 mg/dL (<2.0) 11/25/18 07:30 Ur Leukocyte Esterase Neg (Negative) 11/25/18 07:30 1.0 /HPF (0.0-6.0) 11/25/18 07:30 1.0 /HPF (0.0-6.0) 11/25/18 07:30 U Epithel Cells (Auto) 6.0 /HPF (0-13.0) 11/25/18 07:30 Few /HPF 11/25/18 07:30 Salicylates < 0.3 mg/dL (2.8-20.0) L 11/25/18 04:15 Presumptive negative 11/25/18 07:30 Presumptive negative 11/25/18 07:30 Acetaminophen < 5.0 ug/mL (10.0-30.0) L 11/25/18 04:15 Ur Barbiturates Screen Presumptive negative 11/25/18 07:30 Ur Phencyclidine Scrn Presumptive negative 11/25/18 07:30 Ur Amphetamines Screen Presumptive negative 11/25/18 07:30 U Benzodiazepines Scrn Presumptive negative 11/25/18 07:30 Presumptive negative 11/25/18 07:30 U Marijuana (THC) Screen Presumptive negative 11/25/18 07:30 Disclamer 11/25/18 07:30 Plasma/Serum Alcohol < 0.01 % (0-0.07) 11/25/18 04:15 Active Medications - Current Medications Current Medications: Generic Name Dose Route Start Last Admin Trade Name Freq PRN Reason Stop Dose Admin Acetaminophen 650 mg 11/25/18 06:17 Tylenol PO Q4H PRN Pain MILD(1-3)/Fever >100.5/LLOYD Dextrose 50 ml 11/25/18 06:20 D50w (25gm) Syringe IV PRN PRN Hypoglycemia Enoxaparin Sodium 40 mg 11/25/18 10:00 11/27/18 09:47 Lovenox SUB-Q 40 mg QDAY LIAT Administration Sodium Chloride 1,000 mls @ 125 mls/hr 11/25/18 07:00 11/27/18 02:29 Nacl 0.9% 1000 Ml IV 125 mls/hr DIRECT LIAT Administration Insulin Glargine 25 units 11/25/18 08:00 11/27/18 09:47 Lantus SUB-Q 25 units BIDDIAB LIAT Administration Metoclopramide HCl 10 mg 11/25/18 06:23 Reglan IV Q6H PRN Nausea And Vomiting Olanzapine 5 mg 11/25/18 22:00 11/26/18 21:46 Zyprexa PO 5 mg HS LIAT Administration Pantoprazole Sodium 40 mg 11/25/18 10:00 11/27/18 09:46 Protonix PO 40 mg QDAY LIAT Administration Sodium Chloride 10 ml 11/25/18 10:00 11/27/18 09:47 Sodium Chloride Flush Syringe 10 Ml IV 10 ml BID LIAT Administration Sodium Chloride 10 ml 11/25/18 06:17 Sodium Chloride Flush Syringe 10 Ml IV PRN PRN LINE FLUSH Nutrition/Malnutrition Assess - Dietary Evaluation Nutrition/Malnutrition Findings: Nutrition Notes Start: 11/26/18 15:20 Freq: Status: Active Protocol: Document 11/26/18 15:20 RM (Rec: 11/26/18 15:23 RM [email or web address]) Nutrition Notes Need for Assessment generated from: MST Initial or Follow up Brief Note Current Diagnosis Diabetes,Hypertension Other Pertinent Diagnosis Schizoaffective disorder, Drug overdose Current Diet Consistent CHO Labs/Tests Reviewed Pertinent Medications Reviewed Height 5 ft 7 in Weight 84.2 kg Usual Body Weight 73.64 kg [place] Body Weight (kg) 61.36 BMI 29.0 Subjective/Other Information Screened for malnutrition. 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 Stated that her appetite is fair now and that she eats all of her meals. Stated UBW was 162 lbs 2 weeks ago. No temporal or orbital wasting . Burn Absent Trauma Absent Nutrition Intervention Revisit per MD consult or patient Sign Off request:
[2018-11-27] MEDS: BENADRYL PO PRN (20:22)
[2018-11-28] MEDS: NACL 0.9% 1000 ML 1,000 ML IV SCH (04:13)
--- NOTE | 2018-11-28 08:48 | Progress Note ---
Assessment and Plan Assessment and plan: Drug overdose with gabapentin Schizoaffective disorder with suicidal attempt -On 1013 -Mental health team following. -Zyprexa 5 mg PO HS for psychosis/mood. Abnormal EKG (RBBB and prolonged QT) -Unlikely due to the gabapentin overdose -Telemetry monitoring -Avoid QT prolonging agents -Follow up repeat EKG per poison control recommendation DM2 with hyperglycemia -On IV fluid, SSI and Lantus -Accu-Cheks and ADA diet Hypertension -BP stable GERD -On Protonix DVT prophylaxis with Lovenox Disposition: Discharge planning per psych History Interval history: Patient is a 55-year-old female with history of diabetes mellitus type 2 and schizoaffective disorder who presented to the ED on account of drug overdose with gabapentin. Patient stated that she took 40 tablets of 300 mg of gabapentin at unknown time in order to kill herself. The reason being that she didn't want to live anymore. Patient was evaluated by psychiatry. No new issues overnight. Hospitalist Physical - Constitutional Vitals: Temp Pulse Resp BP Pulse Ox 97.8 F 60 18 132/57 96 11/28/18 06:00 11/28/18 06:39 11/27/18 18:32 11/28/18 06:39 11/28/18 06:39 General appearance: Present: no acute distress - EENT Eyes: Present: PERRL, EOM intact ENT: hearing intact, clear oral mucosa, dentition normal - Neck Neck: Present: supple, normal ROM - Respiratory Respiratory effort: normal Respiratory: bilateral: CTA - Cardiovascular Rhythm: regular Heart Sounds: Present: S1 & S2. Absent: gallop, rub - Extremities Extremities: no ischemia, No edema, Full ROM - Abdominal General gastrointestinal: soft, non-tender, non-distended, normal bowel sounds - Integumentary Integumentary: Present: clear, warm, dry - Neurologic Neurologic: CNII-XII intact, moves all extremities Results - Labs CBC & Chem 7: 11/25/18 04:15 11/26/18 05:45 Labs: Laboratory Last Values WBC 10.2 K/mm3 (4.5-11.0) 11/25/18 04:15 RBC 4.44 M/mm3 (3.65-5.03) 11/25/18 04:15 Hgb 14.0 gm/dl (10.1-14.3) 11/25/18 04:15 Hct 41.6 % (30.3-42.9) 11/25/18 04:15 MCV 94 fl (79-97) 11/25/18 04:15 MCH 32 pg (28-32) 11/25/18 04:15 MCHC 34 % (30-34) 11/25/18 04:15 RDW 14.3 % (13.2-15.2) 11/25/18 04:15 Plt Count 326 K/mm3 (140-440) 11/25/18 04:15 Lymph % (Auto) 35.0 % (13.4-35.0) 11/25/18 04:15 [place] % (Auto) 7.2 % (0.0-7.3) 11/25/18 04:15 Eos % (Auto) 1.3 % (0.0-4.3) 11/25/18 04:15 Baso % (Auto) 0.8 % (0.0-1.8) 11/25/18 04:15 Lymph # 3.6 K/mm3 (1.2-5.4) 11/25/18 04:15 [place] # 0.7 K/mm3 (0.0-0.8) 11/25/18 04:15 Eos # 0.1 K/mm3 (0.0-0.4) 11/25/18 04:15 Baso # 0.1 K/mm3 (0.0-0.1) 11/25/18 04:15 Seg Neutrophils % 55.7 % (40.0-70.0) 11/25/18 04:15 Seg Neutrophils # 5.7 K/mm3 (1.8-7.7) 11/25/18 04:15 Sodium 144 mmol/L (137-145) 11/26/18 05:45 Potassium 3.6 mmol/L (3.6-5.0) 11/26/18 05:45 Chloride 110.5 mmol/L (98-107) H 11/26/18 05:45 Carbon Dioxide 23 mmol/L (22-30) 11/26/18 05:45 14 mmol/L 11/26/18 05:45 BUN 9 mg/dL (7-17) 11/26/18 05:45 0.6 mg/dL (0.7-1.2) L 11/26/18 05:45 Estimated GFR > 60 ml/min 11/26/18 05:45 15 % 11/26/18 05:45 Glucose 197 mg/dL (65-100) H 11/26/18 05:45 POC Glucose 182 (70-105) H 11/27/18 21:38 10.1 % (4-6) H 11/26/18 05:45 Calcium 8.0 mg/dL (8.4-10.2) L 11/26/18 05:45 Magnesium 1.60 mg/dL (1.7-2.3) L 11/26/18 05:45 0.30 mg/dL (0.1-1.2) 11/26/18 05:45 AST 11 units/L (5-40) 11/26/18 05:45 ALT 14 units/L (7-56) 11/26/18 05:45 121 units/L (35-129) 11/26/18 05:45 5.6 g/dL (6.3-8.2) L 11/26/18 05:45 2.8 g/dL (3.9-5) L 11/26/18 05:45 1.0 % 11/26/18 05:45 Yellow (Yellow) 11/25/18 07:30 Slightly-cloudy (Clear) 11/25/18 07:30 6.0 (5.0-7.0) 11/25/18 07:30 Ur Specific [place] 1.030 (1.003-1.030) 11/25/18 07:30 <15 mg/dl mg/dL (Negative) 11/25/18 07:30 >=500 mg/dL (Negative) 11/25/18 07:30 Neg mg/dL (Negative) 11/25/18 07:30 Neg (Negative) 11/25/18 07:30 Neg (Negative) 11/25/18 07:30 Neg (Negative) 11/25/18 07:30 < 2.0 mg/dL (<2.0) 11/25/18 07:30 Ur Leukocyte Esterase Neg (Negative) 11/25/18 07:30 1.0 /HPF (0.0-6.0) 11/25/18 07:30 1.0 /HPF (0.0-6.0) 11/25/18 07:30 U Epithel Cells (Auto) 6.0 /HPF (0-13.0) 11/25/18 07:30 Few /HPF 11/25/18 07:30 Salicylates < 0.3 mg/dL (2.8-20.0) L 11/25/18 04:15 Presumptive negative 11/25/18 07:30 Presumptive negative 11/25/18 07:30 Acetaminophen < 5.0 ug/mL (10.0-30.0) L 11/25/18 04:15 Ur Barbiturates Screen Presumptive negative 11/25/18 07:30 Ur Phencyclidine Scrn Presumptive negative 11/25/18 07:30 Ur Amphetamines Screen Presumptive negative 11/25/18 07:30 U Benzodiazepines Scrn Presumptive negative 11/25/18 07:30 Presumptive negative 11/25/18 07:30 U Marijuana (THC) Screen Presumptive negative 11/25/18 07:30 Disclamer 11/25/18 07:30 Plasma/Serum Alcohol < 0.01 % (0-0.07) 11/25/18 04:15 Active Medications - Current Medications Current Medications: Generic Name Dose Route Start Last Admin Trade Name Freq PRN Reason Stop Dose Admin Acetaminophen 650 mg 11/25/18 06:17 Tylenol PO Q4H PRN Pain MILD(1-3)/Fever >100.5/LLOYD Dextrose 50 ml 11/25/18 06:20 D50w (25gm) Syringe IV PRN PRN Hypoglycemia Diphenhydramine HCl 25 mg 11/27/18 19:50 11/27/18 20:22 Benadryl PO 25 mg Q8H PRN Administration Itching Enoxaparin Sodium 40 mg 11/25/18 10:00 11/27/18 09:47 Lovenox SUB-Q 40 mg QDAY LIAT Administration Sodium Chloride 1,000 mls @ 125 mls/hr 11/25/18 07:00 11/28/18 04:13 Nacl 0.9% 1000 Ml IV 125 mls/hr DIRECT LIAT Administration Insulin Glargine 25 units 11/25/18 08:00 11/27/18 18:05 Lantus SUB-Q 25 units BIDDIAB LIAT Administration Metoclopramide HCl 10 mg 11/25/18 06:23 Reglan IV Q6H PRN Nausea And Vomiting Olanzapine 5 mg 11/25/18 22:00 11/27/18 21:31 Zyprexa PO 5 mg HS LIAT Administration Pantoprazole Sodium 40 mg 11/25/18 10:00 11/27/18 09:46 Protonix PO 40 mg QDAY LIAT Administration Sodium Chloride 10 ml 11/25/18 10:00 11/27/18 21:31 Sodium Chloride Flush Syringe 10 Ml IV 10 ml BID LIAT Administration Sodium Chloride 10 ml 11/25/18 06:17 Sodium Chloride Flush Syringe 10 Ml IV PRN PRN LINE FLUSH Nutrition/Malnutrition Assess - Dietary Evaluation Nutrition/Malnutrition Findings: Nutrition Notes Start: 11/26/18 15:20 Freq: Status: Active Protocol: Document 11/26/18 15:20 RM (Rec: 11/26/18 15:23 RM [id number]) Nutrition Notes Need for Assessment generated from: MST Initial or Follow up Brief Note Current Diagnosis Diabetes,Hypertension Other Pertinent Diagnosis Schizoaffective disorder, Drug overdose Current Diet Consistent CHO Labs/Tests Reviewed Pertinent Medications Reviewed Height 5 ft 7 in Weight 84.2 kg Usual Body Weight 73.64 kg [place] Body Weight (kg) 61.36 BMI 29.0 Subjective/Other Information Screened for malnutrition. 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 Stated that her appetite is fair now and that she eats all of her meals. Stated UBW was 162 lbs 2 weeks ago. No temporal or orbital wasting . Burn Absent Trauma Absent Nutrition Intervention Revisit per MD consult or patient Sign Off request:
--- NOTE | 2018-11-28 09:40 | Progress Note ---
Subjective - Reason for Consult Consult date: 11/28/18 Reason for consult: Psychiatry Follow-up - Chief Complaint Chief complaint: "They are still following me" 55 y.o. white female who presented to the ER for a suicide attempt. Today the patient was calm during the assessment. She continue to think that her 's coworkers are following her because she inherited some money. She stated that she have not been compliant with her psy medication for several months. She denies SI/HI's and VH's. She acknowledged "some type of AH's. She denies any side effects of her medication. Mental Status Exam - Vital signs Last Vital Signs Temp 97.8 F 11/28/18 06:00 Pulse 60 11/28/18 06:39 Resp 18 11/27/18 18:32 BP 132/57 11/28/18 06:39 Pulse Ox 96 11/28/18 06:39 - Exam Narrative exam: MSE: Appearance: calm Behavior: regular eye contact Speech: regular rate with loud tone Mood:: "okay" Affect: flat Thought Process: circumstantial Thought Content: denies SI/HI's and VH's, paranoia, delusional Motor Activity: ambulatory Cognition: A/O x3 Insight: variable Judgment: variable Assessment and Plan Impression: Unspecified Psychosis. Today the patient was calm during the assessment. UDS is negative. QTc 466. DDx: Bipolar DO with psychosis, Schizoaffective DO, Schizophrenia Recommendation/Plan: Continue 1013 and start Zyprexa 5 mg PO HS for psychosis/mood. Discussed possible metabolic side effects of Zyprexa with the patient, she verbalized understanding. Disp: The patient was referred to inpatient psy services. Will staff with Dr. Julian Corona.
[2018-11-28] MEDS: LOVENOX SUB-Q SCH (09:57)
[2018-11-28] MEDS: LANTUS SUB-Q SCH ×2 (09:57→18:25)
[2018-11-28] MEDS: PROTONIX PO SCH (09:57)
[2018-11-28] MEDS: BENADRYL PO PRN ×2 (10:02→16:21)
[2018-11-28] MEDS: SODIUM CHLORIDE FLUSH SYRINGE 10 ML IV SCH ×2 (10:25→21:15)
[2018-11-28] MEDS: HumaLOG SUB-Q SCH ×2 (18:24→21:18)
[2018-11-29] MEDS: BENADRYL PO PRN ×2 (01:58→09:24)
[2018-11-29] MEDS: HumaLOG SUB-Q SCH ×2 (09:24→12:27)
[2018-11-29] MEDS: LANTUS SUB-Q SCH (09:24)
[2018-11-29] MEDS: LOVENOX SUB-Q SCH (09:24)
[2018-11-29] MEDS: PROTONIX PO SCH (09:24)
--- NOTE | 2018-11-29 11:40 | Consultation ---
History of Present Illness Consult date: 11/29/18 Consult reason: other (abnormal ECG) History of present illness: This is a 58 year old woman who is admitted 11/25 with suicide attempt. A cardiac consultation was requested for abnormal ECG. The ECG on presentation is a sinus rhythm, RBBB with prolonged QTc. There is no complaint of chest pain, shortness of breath or palpitations. A repeat ECG done today a sinus rhythm, RBBB but normalization of QTc. Past History Past Medical History: diabetes, GERD, hypertension Past Surgical History: appendectomy, cholecystectomy Social history: Lives alone Family history: other (significant for psychiatric disorder in multiple family members but no known family history of suicidal attempts) Medications and Allergies Allergies Allergy/AdvReac Type Severity Reaction Status Date / Time adhesive tape Allergy Itching Verified 11/25/18 03:54 codeine Allergy Vomiting Verified 11/25/18 03:54 latex Allergy Hives Verified 11/25/18 03:54 Opioids - Morphine Analogues Allergy Vomiting Verified 11/25/18 03:54 Sulfa (Sulfonamide Allergy Hives Verified 11/25/18 03:54 Antibiotics) Home Medications Medication Instructions Recorded Confirmed Last Taken Type Aspirin [Adult Aspirin] 81 mg PO QDAY 11/25/18 11/25/18 Unknown History OLANZapine [Zyprexa Zydis] 15 mg PO QHS 11/25/18 11/25/18 Unknown History Topiramate [Topamax] 25 mg PO BID 11/25/18 11/25/18 Unknown History Active Meds: Active Medications Acetaminophen (Tylenol) 650 mg PO Q4H PRN PRN Reason: Pain MILD(1-3)/Fever >100.5/LLOYD Dextrose (D50w (25gm) Syringe) 50 ml IV PRN PRN PRN Reason: Hypoglycemia Diphenhydramine HCl (Benadryl) 25 mg PO Q6H PRN PRN Reason: Itching Last Admin: 11/29/18 09:24 Dose: 25 mg Documented by: Enoxaparin Sodium (Lovenox) 40 mg SUB-Q QDAY LIAT Last Admin: 11/29/18 09:24 Dose: 40 mg Documented by: Magnesium Sulfate (Magnesium Sulfate 2gm/50ml) 2 gm in 50 mls @ 25 mls/hr IV ONCE ONE Stop: 11/29/18 13:59 Insulin Glargine (Lantus) 30 units SUB-Q BIDDIAB [facility] Last Admin: 11/29/18 09:24 Dose: 30 units Documented by: Insulin Human Lispro (Humalog) 0 unit SUB-Q ACHS [facility]; Protocol Last Admin: 11/29/18 09:24 Dose: Not Given Documented by: Metoclopramide HCl (Reglan) 10 mg IV Q6H PRN PRN Reason: Nausea And Vomiting Olanzapine (Zyprexa) 5 mg PO HS [facility] Last Admin: 11/28/18 21:14 Dose: 5 mg Documented by: Pantoprazole Sodium (Protonix) 40 mg PO QDAY [facility] Last Admin: 11/29/18 09:24 Dose: 40 mg Documented by: Sodium Chloride (Sodium Chloride Flush Syringe 10 Ml) 10 ml IV BID [facility] Last Admin: 11/28/18 21:15 Dose: 10 ml Documented by: Sodium Chloride (Sodium Chloride Flush Syringe 10 Ml) 10 ml IV PRN PRN PRN Reason: LINE FLUSH Physical Examination Vital Signs Temp Pulse Resp BP Pulse Ox 97.9 F 79 16 143/76 99 11/25/18 03:47 11/25/18 03:47 11/25/18 03:47 11/25/18 03:47 11/25/18 03:47 General appearance: no acute distress HEENT: Positive: PERRL Neck: Positive: trachea midline Cardiac: Positive: Reg Rate and Rhythm Lungs: Positive: Decreased Breath Sounds Neuro: Positive: Grossly Intact Extremities: Absent: edema Results 11/25/18 04:15 11/26/18 05:45 Assessment and Plan Suicide attempt Diabetes
--- NOTE | 2018-11-29 11:55 | Progress Note ---
Subjective - Reason for Consult Consult date: 11/29/18 Reason for consult: Psychiatry Follow-up - Chief Complaint Chief complaint: "I feel much better" 55 y.o. white female who presented to the ER for a suicide attempt. Today the patient was calm during the assessment. She stated, 'I don't think anyone is following me." She stated that she got much needed rest last night. She stated that her priority is staying compliant with her psy medication and following up with outpatient psy services. She denies SI/HI's and AVH's. She denies any side effects of her medication. Mental Status Exam - Vital signs Last Vital Signs Temp 97.4 F L 11/29/18 05:46 Pulse 52 L 11/29/18 05:46 Resp 14 11/29/18 05:46 BP 123/61 11/29/18 05:46 Pulse Ox 98 11/29/18 05:46 - Exam Narrative exam: MSE: Appearance: calm, cooperative Behavior: regular eye contact Speech: regular rate with loud tone Mood:: "okay" Affect: congruent to mood Thought Process: more organized Thought Content: denies SI/HI's and AVH's Motor Activity: ambulatory Cognition: A/O x3 Insight: fair Judgment: fair Assessment and Plan Impression: Unspecified Psychosis. Today the patient was calm during the assessment. UDS is negative. The patient's psychosis has resolved. The patient is no threat to self. DDx: Bipolar DO with psychosis, Schizoaffective DO, Schizophrenia Suicide Risk Assessment I. This screening and assessment is based on information collected from the following sources: II. SUICIDE RISK SCREENING (within last 30 days): A.) Suicidal thoughts/behaviors: Yes SUICIDE RISK ASSESSMENT III. FACTORS THAT INCREASE RISK: A.) Demographic and Substance Use Factors: No B.) Current/Recent Factors (within past 3 months): Psychosocial/Environmental Factors: Life Stressors Physical Illness: None Cognitive/Psychological Factors: None C.) Historical Factors: None D.) Diagnostic/Symptom/Treatment Factors: None E.) Acute Risk Factor Severity (DESC; MILD/MOD/SEVERE): Mild Other factors for this individual that increase risk: None IV. FACTORS THAT DECREASE RISK: Resilience/Protective Factors: Patient want to decrease her anxiety Other factors for this individual that decrease risk: Patient denies a desire to harm self V. Clinician's Formulation of Risk and Determination of level of Care: This is a 58 y.o. white female who presented to the ER for overdosing on several Gabapentin pills to kill herself. She stated that she was overwhelmed (paranoia). She stated that her actions were not safe and should have reached out to the crisis hotline. She stated that she will follow-up with outpatient psy services when discharged. The patient is not impaired by substance. She is able to take care of her ADLs and is not at imminent risk of harm to self or others. Consequently, it is the opinion of the treatment team that the patient is at low risk of suicide and does not meet criteria to continue an involuntary psychiatric hold. Estimation of Imminent Risk: Low due to the above explanation. Determination of Level of Care based on Suicide Risk: Outpatient follow-up. Narrative description of clinical reasoning. Given the fact that the patient is willing to engage in outpatient psy services, it is reasonable to expect that the patient will seek services. She is regretful of the decision and has several things in his life to look forward to. At this current time, she is not impulsive and does not have any risk factors to increase the likelihood of her impulsive behavior. Therefore, it is reasonable to expect that the patient will engage in outpatient psy services which will reduce further unsafe behaviors. . Plan and Interventions based on Suicide Risk: This patient will likely be stepped down to an outpatient mental health center in the community upon discharge and follow-up within 7 days of her discharge from the hospital. VII. Discharge/After Hours Support Plan: Patient can return back to the ER, call 911 or crisis line if symptoms of depression, anxiety, suicidality return. Recommendation/Plan: Rescind 1013. Continue Zyprexa 5 mg PO HS for psychosis/mood. Discussed possible metabolic side effects of Zyprexa with the patient, she verbalized understanding. Safety Contract completed with the patient. Disp: The patient can follow up with the [facility] for outpatient psy services. Staffed with Dr. Julian Corona.
[2018-11-29] MEDS ORDERED: MAGNESIUM SULFATE 2GM/50ML 2 GM/50 ML BAG IV ONE (12:00)
[2018-11-29] MEDS: SODIUM CHLORIDE FLUSH SYRINGE 10 ML IV SCH (12:26)
[2018-11-29 12:59] VITALS: BP 133/69
--- NOTE | 2018-11-29 14:47 | Discharge Summary ---
Providers - Providers Date of Admission: 11/25/18 06:17 Date of discharge: 11/29/18 Attending physician: NOAM SHEFFIELD 11/25/18 06:42 Consult to Mental Health [CONS] Routine Reason For Exam: schizoaffective disorder Place consult to:: mental health team Notified:: Phone number called:: [phone] Was contact made?: No Time called:: 08:48 Comment:: no answer 11/26/18 03:56 Consult to Case Management [CONS] Routine Services Needed at Discharge: Other Notified:: Spectral Scientist 11/28/18 15:28 Consult to Cardiology [CONS] Routine Consulting Provider: RADHA GUZMAN Reason For Exam: Cardio clearence for D/C to [facility] Condition: [facility] Hospital course: Patient is a 55-year-old female with history of diabetes mellitus type 2 and schizoaffective disorder who presented to the ED on account of drug overdose with gabapentin. Patient stated that she took 40 tablets of 300 mg of gabapentin at unknown time in order to kill herself. The reason being that she didn't want to live anymore. Patient was evaluated by psychiatry, ED Physician and admitted. He continued to be followed by Psych. On 11/29/18, she denies being suicidal and 1013 was rescinded by Psych. She was therefore discharged home to follow as outpatient. Tota time spent on discharge, 32 mins Disposition: DC-01 TO HOME OR SELFCARE - Discharge Diagnoses (1) Diabetes Status: Acute Qualifiers: Diabetes mellitus type: type 2 (2) Gabapentin overdose Status: Acute (3) Suicide attempt by substance overdose Status: Acute (4) Hypomagnesemia Status: Acute Core Measure Documentation - Palliative Care Palliative Care/ Comfort Measures: Not Applicable - Core Measures Any of the following diagnoses?: none Exam - Constitutional Vitals: Temp Pulse Resp BP Pulse Ox 97.7 F 63 16 133/69 97 11/29/18 12:57 11/29/18 12:57 11/29/18 12:57 11/29/18 12:57 11/29/18 12:57 Plan Activity: no restrictions Diet: low fat, low cholesterol, low salt, diabetic Additional Instructions: 1.Follow up with PCP or [facility] in 3-5 days. 2.Follow up with [facility] in 3-5 days Follow up with: [facility] [Outside] - 7 Days (Wednesday - Wednesday 8:00am - 5:00pm. Walk-In only Must arrive at 7:45 as available slots are first come, first served. To be eligible for services, you must bring the following with you: 1. Proof of Identity 2. Proof of Residence 3. Proof of Income 4. Insurance Cards 5. Referral documents and/or hospital discharge papers.) Prescriptions: metFORMIN [Glucophage] 500 mg PO BID #60 tablet OLANzapine [ZyPREXA] 5 mg PO HS #30 tablet
== END 2018-11-29 17:36 | disposition home or self-care (01) | DRG 918 ==
LOC: ED 03:45 → SUATTDRO 03:45 → EEVIPCON 06:17 → 3A 06:17 → EDBD 06:17
PROVIDERS: ADMIT Internal Medicine; ATTEND Internal Medicine
DX: T42.6X2A Poisoning by other antiepileptic and sedative-hypnotic drugs, intentional self-harm, initial encounter (principal); E11.65 Type 2 diabetes mellitus with hyperglycemia; F25.9 Schizoaffective disorder, unspecified; K21.9 Gastro-esophageal reflux disease without esophagitis; I10 Essential (primary) hypertension; I45.10 Unspecified right bundle-branch block; Y92.89 Other specified places as the place of occurrence of the external cause; I45.81 Long QT syndrome; F17.210 Nicotine dependence, cigarettes, uncomplicated; F29 Unspecified psychosis not due to a substance or known physiological condition; Z91.040 Latex allergy status; Z88.5 Allergy status to narcotic agent; Z91.013 Allergy to seafood; Z90.49 Acquired absence of other specified parts of digestive tract
CPT/HCPCS: 36415; 80048; 80053; 80307; 80320; 81001; 82962; 83036; 83735; 85025; 93005; 93010; 96361; 96374; 99406; G0378; G0480; J1650; J1815; J3475; J7030